=== PATIENT | female | born 1970 | race Caucasian/White ===

== ENCOUNTER 2018-12-28 05:21 | Emergency (ER) | payer OTHER ==
[~2018-12-28] VITALS: Ht 165.1 cm; Wt 74.8 kg
[~2018-12-28 05:21] MED LIST: DUEXIS 800-26.1 EACH; LOTREL
--- OUTSIDE RECORDS SUMMARY | 2018-12-28 05:25 | XMS REPORT | Encounter Summary ---
Author Organization Unknown Address [address] [place] [address] Phone [phone] Reason for Visit Medical Complaint Instructions 1. Exposure to Influenza A virus subtype H1N1 rapid flu (A+B) Tamiflu 75 mg capsule 2. Acute urinary tract infection urinalysis, dipstick Macrobid 100 mg capsule culture, urine Discussion Note: None recorded. Patient educational handouts: No information available. Plan of Care Patient Instructions Increase fluid intake. Take med as prescribed.If started to have yeast infection while on antibiotic, may call clinic for diflucan. Wipe front to back and urinate after sexual intercouse.Wear loose cotton underwear. May take cranberry juice for preventative. If symptoms worsen follow with severe back pain, chills, fever, abdominal pain call clinic. Reminders Provider Appointments None recorded. Lab Rapid Flu (A+B) 02/05/2016 [facility] Urinalysis, Dipstick 02/05/2016 [facility] Culture, Urine 02/05/2016 [facility] Referral None recorded. Procedures None recorded. Surgeries None recorded. Imaging None recorded. Medications Name Start Date hydrochlorothiazide 12.5 mg tablet ibuprofen 600 mg tablet losartan 50 mg tablet Macrobid 100 mg capsule Take 1 capsule(s) every 12 hours by oral route as directed for 7 days. Tamiflu 75 mg capsule Take 1 capsule(s) every day by oral route as directed for 10 days. tramadol 50 mg tablet Medications Administered None recorded. Vitals Height Weight BMI Blood Pressure 5 ft 5 in 175 lbs 29.1 118/80 Lab Results Date Name Result Description Value Range Status Rapid Flu (A+B) Influenza a negative Influenza B negative Urinalysis, Dipstick Color : Yellow Clarity : Cloudy Leukocytes : Moderate Nitrites : Positive Urobilinogen : Normal Protein : Negative Ph : 6.5 Blood : Small Specific Hodge : 1.020 Ketones : Negative Bilirubin : Negative Glucose Negative Allergies Name Reaction Severity Onset Aspirin Penicillins Problems Name Status Onset Date Source Sore Throat Symptom Active Encounter Acute Upper Respiratory Infection Active Encounter Urinary Tract Infectious Disease Active Encounter Acute Urinary Tract Infection Active Encounter Dysuria Active Encounter Procedures None recorded. Vaccine List None recorded. Social History Smoking Status Never Smoker Past Encounters 02/05/2016 Exposure to Influenza a Virus Subtype H1N1; Acute Urinary Tract Infection Ashley Muir, LAT[employer] DANCE INSTRUCTOR: [address] [place] [address], Ph. History of Present Illness [id number]-Aqk Reported By: Patient HPI: Quality: cannot identify. Duration: constant. Severity: subjective temperature. Onset/Timing: first recorded 2 days. Context: no tick/insect bites, no recent travel, no new medications, ill contacts. Associated Symptoms: no rash, no lethargy, cough, nasal discharge. Modifying Factors OTC medication Review of Systems Basic Reported By: Patient Constitutional: Constitutional: fever Eyes: Eyes: no eye complaints Pchb-Thsd-Roxho-Throat: Ears: no ear complaints. Nose: nose/sinus problems. Mouth/Throat: no sore throat, no bleeding gums, no mouth complaints, no teeth problems Cardiovascular: Cardiovascular: no chest pain, no shortness of breath, no known heart murmur Respiratory: Respiratory: no wheezing, no shortness of breath, cough Gastrointestinal: Gastrointestinal: no abdominal pain, no vomiting / diarrhea Genitourinary: Genitourinary: no urinary complaints, no discharge Musculoskeletal: Musculoskeletal: no muscle weakness, no arthralgias/joint pain, no back pain, muscle aches Skin: Skin: no abnormal / changing mole, no jaundice, no rashes Neurologic: Neurologic: no loss of consciousness, no weakness, no numbness, no seizures, no dizziness, no headaches Physical Exam Adult Female Complete, Adult Basic Constitutional: General Appearance: healthy-appearing, well-nourished, well-developed. Level of Distress: NAD. Ambulation: ambulating normally Psychiatric: Mental Status: active and alert. Orientation: to time, to place, to person Eyes: Lids and Conjunctivae: non-injected, no discharge, no pallor. Pupils: PERRLA. Corneas: grossly intact. EOM: EOMI. Lens: clear. Sclerae: non-icteric. Vision: acuity grossly intact Jql-Ywiv-Bncyt-Throat: Ears: no lesions on external ear, no outer ear tenderness, EACs clear, TMs clear. Hearing: no hearing loss. Nose: no lesions on external nose, nares patent, no septal deviation, nasal passages clear, no sinus tenderness, no nasal discharge. Lips, Teeth, and Gums: no mouth or lip ulcers, no bleeding gums, normal dentition. Oropharynx: moist mucous membranes, no erythema, no exudates, tonsils not enlarged Neck: Neck: supple, trachea midline, no masses, FROM. Lymph Nodes: no cervical LAD, no supraclavicular LAD. Thyroid: no enlargement, non-tender, no nodules Lungs: Respiratory effort: no dyspnea, no tachypnea, no use of accessory muscles, no intercostal retractions. Auscultation: breath sounds normal Cardiovascular: Heart Auscultation: RRR, no murmurs. Neck vessels: no carotid bruits Abdomen: Bowel Sounds: normal. Inspection and Palpation: soft, non-distended, no tenderness, no guarding, no rebound tenderness, no masses, no CVA tenderness. Liver: non-tender, no hepatomegaly. Spleen: non-tender, no splenomegaly. Hernia: none palpable
--- OUTSIDE RECORDS SUMMARY | 2018-12-28 05:25 | XMS REPORT | Encounter Summary ---
Author Organization Unknown Address [address] [place] [address] Phone [phone] Care Team Providers Care Lab Engineer Name Role Phone Ishan Tinoco 3 [phone] Reason for Visit Medical Complaint Instructions 1. Dysuria urinalysis, dipstick painful urination (dysuria): care instructions Macrobid 100 mg capsule phenazopyridine 200 mg tablet culture, urine 2. Acute upper respiratory infection rapid flu (A+B) upper respiratory infection (cold): care instructions fluticasone 50 mcg/actuation nasal spray,suspension benzonatate 200 mg capsule 3. Sore throat symptom rapid strep group A, throat sore throat: care instructions 4. Elevated blood pressure elevated blood pressure: care instructions dash diet: care instructions blood pressure monitoring education 5. Body mass index 25-29 - overweight learning about healthy weight Discussion Note: None recorded. Plan of Care Patient Instructions A urinary tract infection, or UTI, is a general term for an infection anywhere between the kidneys and the urethra (where urine comes out). Most UTIs are bladder infections. They often cause pain or burning when you urinate. UTIs are caused by bacteria and can be cured with antibiotics. Be sure to complete your treatment so that the infection goes away. How can you care for yourself at home? Take your antibiotics as directed. Do not stop taking them just because you feel better. You need to take the full course of antibiotics. Drink extra water and other fluids for the next day or two. This may help wash out the bacteria that are causing the infection. (If you have kidney, heart, or liver disease and have to limit fluids, talk with your doctor before you increase your fluid intake.) Avoid drinks that are carbonated or have caffeine. They can irritate the bladder. Urinate often. Try to empty your bladder each time. To relieve pain, take a hot bath or lay a heating pad set on low over your lower belly or genital area. Never go to sleep with a heating pad in place. To prevent UTIs Drink plenty of water each day. This helps you urinate often, which clears bacteria from your system. (If you have kidney, heart, or liver disease and have to limit fluids, talk with your doctor before you increase your fluid intake.) Urinate when you need to. Urinate right after you have sex. Change sanitary pads often. Avoid douches, bubble baths, feminine hygiene sprays, and other feminine hygiene products that have deodorants. After going to the bathroom, wipe from front to back. When should you call for help? Call your doctor now or seek immediate medical care if: Symptoms such as fever, chills, nausea, or vomiting get worse or appear for the first time. You have new pain in your back just below your rib cage. This is called flank pain. There is new blood or pus in your urine. You have any problems with your antibiotic medicine. Watch closely for changes in your health, and be sure to contact your doctor if: You are not getting better after taking an antibiotic for 2 days. Your symptoms go away but then come back. Reminders Provider Appointments None recorded. Lab Rapid Strep Group a, Throat 11/06/2018 [facility] Rapid Flu (A+B) 11/06/2018 [facility] Urinalysis, Dipstick 11/06/2018 [facility] Culture, Urine 11/06/2018 [facility] Referral None recorded. Procedures None recorded. Surgeries None recorded. Imaging None recorded. Medications Name Start Date benzonatate 200 mg capsule Take 1 capsule 3 times a day by oral route for 10 days. fluticasone 50 mcg/actuation nasal spray,suspension [place] 2 sprays every day by intranasal route as needed for 10 days. hydrochlorothiazide 12.5 mg tablet TAKE 1 TABLET BY MOUTH EVERY DAY NEEDED. __DUE FOR 6 MONTH FOLLOW UP. PLEASE SCHEDULE APPOINTMENT FOR OFFICE VISIT.__ losartan 50 mg tablet TAKE ONE TABLET BY MOUTH ONCE DAILY. __DUE FOR 6 MONTH FOLLOW UP. PLEASE SCHEDULE APPOINTMENT FOR OFFICE VISIT.__ Macrobid 100 mg capsule Take 1 capsule every 12 hours by oral route as directed for 7 days. phenazopyridine 200 mg tablet Take 1 tablet 3 times a day by oral route for 3 days. Medications Administered None recorded. Vitals Height Weight BMI Blood Pressure 5 ft 5 in 165 lbs 27.5 kg/m2 110/80 mm[Hg] Lab Results Date Name Specimen Result Interpretation Description Value Range Status Address 11/06/2018 Urinalysis, Dipstick Color : Zoe [facility]: [address] [place] [address] Clarity : Clear [facility]: [address] [place] [address] Leukocytes : Large [facility]: [address] [place] [address] Nitrites : Positive [facility]: [address] [place] [address] Urobilinogen : 1 [facility]: [address] [place] [address] Protein : Trace [facility]: [address] [place] [address] Ph : 5.0 [facility]: [address] [place] [address] Blood : Small [facility]: [address] [place] [address] Specific [place] : 1.015 [facility]: [address] [place] [address] Ketones : Trace [facility]: [address] [place] [address] Bilirubin : Large [facility]: [address] [place] [address] Glucose Negative [facility]: [address] [place] [address] Rapid Flu (A+B) Influenza a negative [facility]: [address] [place] [address] Influenza B negative [facility]: [address] [place] [address] Rapid Strep Group a, Throat Result negative [facility]: [address] [place] [address] Swab Location Left and Right tonsillar pillars [facility]: [address] [place] [address] Allergies Code Code System Name Reaction Severity Status Onset 1191 RxNorm Aspirin Active Penicillins Active Problems Name Status Onset Date Source Hypertensive Disorder Active 11/06/2018 Sore Throat Symptom Active Encounter Acute Upper Respiratory Infection Active Encounter Urinary Tract Infectious Disease Active Encounter Acute Urinary Tract Infection Active Encounter Dysuria Active Encounter Procedures None recorded. Vaccine List None recorded. Social History Smoking Status Never Smoker Past Encounters 11/06/2018 Dysuria; Acute Upper Respiratory Infection; Sore Throat Symptom; Elevated Blood Pressure; Body Mass Index 25-29 - Overweight GLADYS Justin-C: [address] [place] [address], Ph. History of Present Illness [id number]-PPI-Sahqbgk Reported By: Patient HPI: Location: urethra. Quality: pain, pressure, burning. Context: no known exposure to STD, no prior history of STDs, sexually active. Associated Symptoms: no fever/chills, no jaundice, no blood in the urine, no pain during urination, no vaginal discharge, no blisters on genitals, no rash on genitals, no headache, flank pain, burning sensation during urination, urgency, urinary frequency, feeling of incomplete emptying of bladder, muscle aches Qijpx-Uryoxorbif-Epzvopo Reported By: Patient HPI: Location: head/sinuses, throat, chest. Quality: productive cough, sore throat, nasal/sinus congestion. Duration: 4days. Severity: moderate. Onset/Timing: gradual. Context: no sick contacts, no foreign travel, non-smoker. Associated Symptoms: no sputum production, no shortness of breath, no wheezing, no change in number of pillows needed to sleep at night, no sweats, no significant weight gain, no significant weight loss, no vomiting, no diarrhea, no rash, no nausea, no fever, morning cough, sore throat, fever, muscle aches, headache Review of Systems:ROS as noted in the HPI Review of Systems Basic Reported By: Patient Physical Exam Adult Basic, Adult Female Complete Reported By: Patient Constitutional: General Appearance: healthy-appearing, well-nourished, well-developed, overweight. Level of Distress: NAD. Ambulation: ambulating normally Psychiatric: Mental Status: active and alert. Orientation: to time, to place, to person Qgu-Zsgx-Ocwdp-Throat: Ears: no lesions on external ear, no outer ear tenderness, EACs clear, TMs clear. Hearing: no hearing loss. Nose: no lesions on external nose, no septal deviation, nasal passages clear, no sinus tenderness, nares non- patent, nasal discharge--rhinorrhea, post nasal drip. Lips, Teeth, and Gums: no mouth or lip ulcers, no bleeding gums, normal dentition. Oropharynx: moist mucous membranes, no erythema, no exudates, tonsils not enlarged Lungs: Respiratory effort: no dyspnea, no tachypnea, no use of accessory muscles, no intercostal retractions. Auscultation: breath sounds normal Cardiovascular: Heart Auscultation: RRR, no murmurs Abdomen: Bowel Sounds: normal. Inspection and Palpation: soft, non-distended, no tenderness, no guarding, no rebound tenderness, no masses, no CVA tenderness
--- OUTSIDE RECORDS SUMMARY | 2018-12-28 05:25 | XMS REPORT | Continuity of Care Document ---
Author Author [facility] Interface Address Unknown Phone Unavailable Problems Problem Status Onset Date Classification Date Reported Comments Source Body mass index 25-29 - overweight 11/06/2018 Diagnosis 11/06/2018 [facility] Elevated blood pressure 11/06/2018 Diagnosis 11/06/2018 [facility] Sore throat symptom 11/06/2018 Diagnosis 11/06/2018 [facility] Acute upper respiratory infection 11/06/2018 Diagnosis 11/06/2018 [facility] Hypertensive Disorder 11/06/2018 Problem 11/06/2018 [facility] Acute left otitis media 07/01/2017 Diagnosis 07/01/2017 [facility] Rhinitis 07/01/2017 Diagnosis 07/01/2017 [facility] Exposure to Influenza A virus subtype H1N1 02/05/2016 Diagnosis 02/05/2016 [facility] Acute urinary tract infection 02/05/2016 Diagnosis 02/05/2016 [facility] V76.12 - SCREEN MAMMOGRA Active 01/26/2015 [facility] Sore Throat Symptom Problem 11/06/2018 [facility] Acute Upper Respiratory Infection Problem 11/06/2018 [facility] Urinary Tract Infectious Disease Problem 11/06/2018 [facility] Acute Urinary Tract Infection Problem 11/06/2018 [facility] Dysuria Problem 11/06/2018 [facility] Medications Medication Details Route Status Patient Instructions Ordering Provider Order Date Source Azithromycin 250 MG Oral Tablet azithromycin 250 mg tablet Take 2 tablets (500 mg) by oral route once daily for 1 day then 1 tablet (250 mg) by oral route once daily for 4 days Active [facility] Fluticasone propionate 0.05 MG/ACTUAT Metered Dose Nasal [place] fluticasone 50 mcg/actuation nasal spray,suspension [place] 2 sprays every day by intranasal route as needed for 10 days. Active [facility] Hydrochlorothiazide 12.5 MG Oral Tablet hydrochlorothiazide 12.5 mg tablet TAKE 1 TABLET BY MOUTH EVERY DAY NEEDED. __DUE FOR 6 MONTH FOLLOW UP. PLEASE SCHEDULE APPOINTMENT FOR OFFICE VISIT.__ Active [facility] Losartan Potassium 50 MG Oral Tablet losartan 50 mg tablet TAKE ONE TABLET BY MOUTH ONCE DAILY. __DUE FOR 6 MONTH FOLLOW UP. PLEASE SCHEDULE APPOINTMENT FOR OFFICE VISIT.__ Active [facility] Prednisone 20 MG Oral Tablet prednisone 20 mg tablet Take 1 tablet twice a day by oral route as directed for 6 days. Active [facility] benzonatate 200 MG Oral Capsule benzonatate 200 mg capsule Take 1 capsule 3 times a day by oral route for 10 days. Active [facility] NITROFURANTOIN, MACROCRYSTALS 25 MG / Nitrofurantoin, Monohydrate 75 MG Oral Capsule [Macrobid] Macrobid 100 mg capsule Take 1 capsule every 12 hours by oral route as directed for 7 days. Active [facility] Phenazopyridine hydrochloride 200 MG Oral Tablet phenazopyridine 200 mg tablet Take 1 tablet 3 times a day by oral route for 3 days. Active [facility] Ibuprofen 600 MG Oral Tablet ibuprofen 600 mg tablet Active [facility] Oseltamivir 75 MG Oral Capsule [Tamiflu] Tamiflu 75 mg capsule Take 1 capsule(s) every day by oral route as directed for 10 days. Active [facility] tramadol hydrochloride 50 MG Oral Tablet tramadol 50 mg tablet Active [facility] Allergies, Adverse Reactions, Alerts Substance Category Reaction Severity Reaction type Status Date Reported Comments Source Aspirin Allergy to substance 07/12/2010 [facility] Penicillins Allergy to substance 07/12/2010 [facility] Immunizations Immunization Date Given Site Status Last Updated Comments Source Results Order Name Results Value Reference Range Date Interpretation Comments Source Urinalysis macro (dipstick) panel - Urine COLOR : Zoe 11/06/2018 [facility] Urinalysis macro (dipstick) panel - Urine CLARITY : Clear 11/06/2018 [facility] Urinalysis macro (dipstick) panel - Urine LEUKOCYTES : Large 11/06/2018 [facility] Urinalysis macro (dipstick) panel - Urine NITRITES : Positive 11/06/2018 [facility] Urinalysis macro (dipstick) panel - Urine UROBILINOGEN : 1 11/06/2018 [facility] Urinalysis macro (dipstick) panel - Urine PROTEIN : Trace 11/06/2018 [facility] Urinalysis macro (dipstick) panel - Urine pH : 5.0 11/06/2018 [facility] Urinalysis macro (dipstick) panel - Urine BLOOD : Small 11/06/2018 [facility] Urinalysis macro (dipstick) panel - Urine SPECIFIC GRAVITY : 1.015 11/06/2018 [facility] Urinalysis macro (dipstick) panel - Urine KETONES : Trace 11/06/2018 [facility] Urinalysis macro (dipstick) panel - Urine BILIRUBIN : Large 11/06/2018 [facility] Urinalysis macro (dipstick) panel - Urine GLUCOSE Negative 11/06/2018 [facility] Influenza A negative 11/06/2018 [facility] Influenza B negative 11/06/2018 [facility] RESULT negative 11/06/2018 [facility] SWAB LOCATION Left and Right tonsillar pillars 11/06/2018 [facility] Urinalysis macro (dipstick) panel - Urine COLOR : Yellow 02/05/2016 [facility] Urinalysis macro (dipstick) panel - Urine CLARITY : Cloudy 02/05/2016 [facility] Urinalysis macro (dipstick) panel - Urine LEUKOCYTES : Moderate 02/05/2016 [facility] Urinalysis macro (dipstick) panel - Urine NITRITES : Positive 02/05/2016 [facility] Urinalysis macro (dipstick) panel - Urine UROBILINOGEN : Normal 02/05/2016 [facility] Urinalysis macro (dipstick) panel - Urine PROTEIN : Negative 02/05/2016 [facility] Urinalysis macro (dipstick) panel - Urine pH : 6.5 02/05/2016 [facility] Urinalysis macro (dipstick) panel - Urine BLOOD : Small 02/05/2016 [facility] Urinalysis macro (dipstick) panel - Urine SPECIFIC GRAVITY : 1.020 02/05/2016 [facility] Urinalysis macro (dipstick) panel - Urine KETONES : Negative 02/05/2016 [facility] Urinalysis macro (dipstick) panel - Urine BILIRUBIN : Negative 02/05/2016 [facility] Urinalysis macro (dipstick) panel - Urine GLUCOSE Negative 02/05/2016 [facility] Influenza A negative 02/05/2016 [facility] Influenza B negative 02/05/2016 [facility] Digital Mammo Screening Jae MA Digital Mammo Screening Jae MA - DIGITAL MAMMO SCREENING JAE MA BILATERAL DIGITAL SCREENING MAMMOGRAM WITH CAD: 02/13/2015 CLINICAL: Annual Screening. Current study was evaluated with a Computer Aided Detection (CAD) system. Comparison is made to exam dated: 08/19/2011 mammogram - [facility]. There are scattered fibroglandular densities in both breasts. Bilateral breast implants are intact. No significant masses, calcifications, or other findings are seen in either breast. There has been no significant interval change. IMPRESSION: NEGATIVE There is no mammographic evidence of malignancy. A 1 year screening mammogram is recommended. Dr. Asad Becker M.D. eoc/penrad:02/16/2015 15:38:21 Content Management Consultant: Gosia Ramírez RT(R)(M), [facility] This exam was dictated and interpreted by [id number] for LANI Sykes. letter sent: Normal exam Mammogram BI-RADS: 1 Negative 02/13/2015 - - Read by: Asad Becker MD Dictated Date/time: 02/16/15 15:38 Electronically Signed by: Asad Becker MD 02/16/15 15:38 FINAL REPORT [facility] Leos Vital Signs Vital Sign Value Date Comments Source Diastolic (mm Hg) 80 11/06/2018 [facility] Height 65 11/06/2018 [facility] Systolic (mm Hg) 110 11/06/2018 [facility] Weight 165 11/06/2018 [facility] Diastolic (mm Hg) 80 07/01/2017 [facility] Height 65 07/01/2017 [facility] Systolic (mm Hg) 132 07/01/2017 [facility] Weight 190 07/01/2017 [facility] Diastolic (mm Hg) 80 02/05/2016 [facility] Height 65 02/05/2016 [facility] Systolic (mm Hg) 118 02/05/2016 [facility] Weight 175 02/05/2016 [facility] Encounters Location Location Details Encounter Type Encounter Number Reason For Visit Attending Provider ADM Date DC Date Status Source [facility] Out[facility] - [facility] [id number] KHADIJAH SLAUGHTER 02/13/2015 02/14/2015 [facility] [place] - [facility] - [id number] Ashley Muir, CASE PREPARER AND LINER: [address] [facility], [place] [address], Ph. [id number] Ashley Muir 02/05/2016 [facility] [place] - [facility] - [id number] GLADYS Mata-C: [address] [place] [address], Ph. [id number] Romi Irby 07/01/2017 [facility] [place] - [facility] - [id number] GLADYS Justin-C: [address] [place] [address], Ph. [id number] Yudelka Montalvo 11/06/2018 [facility] Procedures Procedure Code Date Perfomer Comments Source
--- OUTSIDE RECORDS SUMMARY | 2018-12-28 05:25 | XMS REPORT | Summary of Care ---
Author Organization Unknown Address Unknown Phone Unavailable Encounter HQ Arnulfontr_analilia([facility]) [id number] Date(s): 02/13/15 - 02/13/15 [facility] Outpatient Imaging - [place] [address] [place], [place] [address] [phone] Discharge Disposition: Home Physician Attending: KHADIJAH SLAUGHTER Vital Signs No data available for this section Problem List No data available for this section Allergies, Adverse Reactions, Alerts No data available for this section Medications No data available for this section Results No data available for this section Immunizations No data available for this section Procedures No data available for this section Social History No data available for this section Assessment and Plan No data available for this section
--- OUTSIDE RECORDS SUMMARY | 2018-12-28 05:25 | XMS REPORT | Encounter Summary ---
Author Organization Unknown Address [address] [place] [id number] Phone [phone] Care Team Providers Care Order Filler Name Role Phone Ishan Tinoco 3 [phone] Reason for Visit Left Medical Complaint Instructions 1. Acute left otitis media azithromycin 250 mg tablet 2. Rhinitis prednisone 20 mg tablet fluticasone 50 mcg/actuation nasal spray,suspension Discussion Note Pt is in NAD; Verbalizes understanding of all instructions with no questions at this time. Patient educational handouts: No information available. Plan of Care Patient Instructions Take fluticasone as needed for nasal and ear congestion. [place] one spray in each nostril twice a day. Take a warm, steamy shower, blow your nose thereafter, and spray in each nostril. Tilt your head up for about 10 seconds and breath through your mouth. Do not sniff or snort the medication in or else the medication will go to your throat and not be absorbed appropriately. Take Claritin for allergy l jalen symptoms like runny nose, sneezing and watery eyes. Take steroid taper as directed and with food to avoid heartburn. if no improvement of ear symptoms in 2-3 days, start antibiotics. Take medications as prescribed and follow up with a PCP or ENT within 2-3 if symptoms worsen as discussed. Reminders Provider Appointments None recorded. Lab None recorded. Referral None recorded. Procedures None recorded. Surgeries None recorded. Imaging None recorded. Medications Name Start Date azithromycin 250 mg tablet Take 2 tablets (500 mg) by oral route once daily for 1 day then 1 tablet (250 mg) by oral route once daily for 4 days fluticasone 50 mcg/actuation nasal spray,suspension [place] 2 sprays every day by intranasal route as needed for 10 days. hydrochlorothiazide 12.5 mg tablet losartan 50 mg tablet TAKE ONE (1) TABLET(S) BY MOUTH ONCE A DAY DIRECTED. prednisone 20 mg tablet Take 1 tablet twice a day by oral route as directed for 6 days. Medications Administered None recorded. Vitals Height Weight BMI Blood Pressure 5 ft 5 in 190 lbs 31.6 kg/m2 132/80 mm[Hg] Lab Results None recorded. Allergies Code Code System Name Reaction Severity Status Onset 1191 RxNorm Aspirin Active Penicillins Active Problems Name Status Onset Date Source Sore Throat Symptom Active Encounter Acute Upper Respiratory Infection Active Encounter Urinary Tract Infectious Disease Active Encounter Acute Urinary Tract Infection Active Encounter Dysuria Active Encounter Procedures None recorded. Vaccine List None recorded. Social History Smoking Status Never Smoker Past Encounters 07/01/2017 Acute Left Otitis Media; Rhinitis Romi Irby, [facility]: [address] [facility], [place] [address], Ph. History of Present Illness [id number] Reported By: Patient HPI: Location: head/sinuses. Quality: nasal/sinus congestion. Duration: 3days. Severity: moderate. Onset/Timing: gradual. Context: no sick contacts, no foreign travel, non-smoker, allergies. Modifying factors: OTC medication. Associated Symptoms: no sputum production, no shortness of breath, no wheezing, no change in number of pillows needed to sleep at night, no sweats, no significant weight gain, no significant weight loss, no morning cough, no sore throat, no vomiting, no diarrhea, no rash, no nausea, no fever, no muscle aches, no headache; sinus pressure and left ear pain Ear Complaint Reported By: Patient HPI: Location: left. Quality: sharp, aching. Severity: continuous, moderate, current pain 7/10. Duration: constant; X 3 days. Onset/Timing: worse, abrupt onset. Context: no sick contacts, no recent swimming/water in ear, no exposure to second hand smoke, no head trauma, not grinding teeth, no recent air travel. Modifying factors: hurts to lie on, or pull on ear, hurts to chew, OTC medication. Associated Symptoms: no discharge from the ears, no popping noise in the ears, no ringing in the ears, no fever, no chills, no dizziness, no vertigo, no headache, no muscle aches, nose/sinus problems, earache; moderate left ear pressure and sinus pressure Review of Systems:ROS as noted in the HPI Review of Systems Basic Reported By: Patient Physical Exam Adult Basic, 14-21 Yr Male, Adult Female Complete Reported By: Patient Constitutional: General Appearance: healthy-appearing, well-nourished, well-developed. Level of Distress: NAD. Ambulation: ambulating normally Psychiatric: Mental Status: active and alert. Orientation: to time, to place, to person [id number]-Throat: Ears: no lesions on external ear, EACs clear, outer ear tenderness, TM erythematous, TM bulging. Nose: no lesions on external nose, nares patent, no septal deviation, nasal passages clear, no sinus tenderness, nasal discharge--rhinorrhea, post nasal drip; pink and edematous nasal turbinates bilaterally. Lips, Teeth, and Gums: no mouth or lip ulcers, no bleeding gums, normal dentition. Oropharynx: moist mucous membranes, no erythema, no exudates, tonsils not enlarged Neck: Neck: supple. Lymph Nodes: no cervical LAD Lungs: Respiratory effort: no dyspnea, no tachypnea, no use of accessory muscles, no intercostal retractions. Auscultation: breath sounds normal Cardiovascular: Heart Auscultation: RRR, no murmurs Neurologic: Gait and Station: normal gait, normal station
[2018-12-28 06:43] LABS: BASOPHILS % 0.4 % (0.0-1.0); EOSINOPHILS # (AUTO) 0.1 (0.0-0.4); HEMATOCRIT 38.2 % (34.2-44.1); HEMOGLOBIN 12.2 g/dL (12.0-16.0); LYMPHOCYTES # (AUTO) 0.7 (1.0-3.2); LYMPHOCYTES % 8.9 % (18.0-39.1); MEAN CORPUSCULAR HEMOGLOBIN 28.8 pg (28-32); MEAN CORPUSCULAR HGB CONC 31.9 g/dL (31-35); MEAN CORPUSCULAR VOLUME 90.1 fL (81-99); MONOCYTES # (AUTO) 0.3 (0.2-0.8); MONOCYTES % 4.5 % (4.4-11.3); NEUTROPHILS # (AUTO) 6.2 (2.1-6.9); NEUTROPHILS % 84.5 % (38.7-80.0); PLATELET COUNT 216 x10e3/uL (140-360); RED BLOOD COUNT 4.24 x10e6/uL (3.6-5.1); RED CELL DISTRIBUTION WIDTH 13.4 % (11.7-14.4)
--- NOTE | 2018-12-28 07:09 | Diagnostic Imaging Report ---
EXAMINATION: PA and lateral views of the chest. COMPARISON: None CLINICAL HISTORY: High fever, nausea DISCUSSION: Lines/tubes: None. Lungs: Lungs are well-inflated. Ill-defined airspace opacity located in the lingular/infrahilar location. Right lung is clear. Pleura: There is no pleural effusion or pneumothorax. Heart and mediastinum: Cardiomediastinal silhouette is unremarkable. Pulmonary vasculature is normal. Bones and soft tissues: No acute bony abnormalities. IMPRESSION: Left lingular/infrahilar ill-defined airspace opacity, likely representing pneumonia, in the appropriate clinical setting. Recommend chest PA and lateral 4-6 weeks after appropriate treatment to document resolution. Signed by: Dr. Pankaj Melendez M.D. on 12/28/2018 7:06 AM
[2018-12-28 07:10] LABS: ALANINE AMINOTRANSFERASE 17 IU/L (0-55); ALBUMIN/GLOBULIN RATIO 0.8 (0.8-2.0); ALKALINE PHOSPHATASE 71 IU/L (40-150); ANION GAP 8.9 mmol/L (8-16); BLOOD UREA NITROGEN 8 mg/dL (7-26); BUN/CREATININE RATIO 10 (6-25); CARBON DIOXIDE 27 mmol/L (22-29); CHLORIDE 104 mmol/L (98-107); CREATININE, SERUM 0.81 mg/dL (0.57-1.11); EST GLOMERULAR FILTRATION RATE > 60 ML/MIN (60-); GLUCOSE 110 mg/dL (74-118); POTASSIUM 3.9 mmol/L (3.5-5.1); SODIUM 136 mmol/L (136-145)
[2018-12-28] MEDS ORDERED: ACETAMINOPHEN 325 MG TAB PO ONE (09:30)
[2018-12-28] MEDS ORDERED: ACETAMINOPHEN 325 MG TAB ONE (09:35)
--- NOTE | 2018-12-28 09:35 | NUR ---
PATIENT PROVIDED WITH 975MG PO TYLENOL FOR FEVER; DR. GRIMES IN TRIAGE REVEIWING PLAN OF CARE WITH PATIENT FOR DISCHARGE;
[2018-12-28 09:42] VITALS: BP 150/88
[2018-12-28] MEDS ORDERED: ONDANSETRON HCL 4 MG ORAL DISINTEGRATING TAB PO ONE (09:45)
== END 2018-12-28 09:50 | disposition home or self-care (01) ==
LOC: ER 05:21
DX: R50.9 Fever, unspecified (principal); R11.2 Nausea with vomiting, unspecified; R05 Cough; R51 Headache; J15.9 Unspecified bacterial pneumonia; I10 Essential (primary) hypertension
CPT/HCPCS: 36415; 71046; 80053; 85025; 99283; Q0162

== ENCOUNTER 2022-01-11 15:11 | Observation (INO) | payer OTHER ==
[~2022-01-11] VITALS: Ht 165.1 cm; Wt 78.0 kg
[2022-01-11] MEDS ORDERED: ONDANSETRON HCL INJ 2MG/ML 2ML 2 MG/ML VIAL IV STA (15:28)
[2022-01-11] MEDS ORDERED: SODIUM CHLORIDE 0.9% 1000ML 1,000 ML IV SCH (15:30)
[2022-01-11] MEDS ORDERED: FENTANYL CITRATE/PF 100MCG/2 ML INJ IV PRN (15:30)
[2022-01-11 15:52] LABS: BASOPHILS # (AUTO) 0.1 (0.0-0.1); BASOPHILS % 0.7 % (0.0-1.0); EOSINOPHILS # (AUTO) 0.4 (0.0-0.4); EOSINOPHILS % 5.8 % (0.0-6.0); HEMATOCRIT 47.4 % (34.2-44.1); HEMOGLOBIN 15.6 g/dL (12.0-16.0); LYMPHOCYTES # (AUTO) 1.5 (1.0-3.2); LYMPHOCYTES % 21.3 % (18.0-39.1); MEAN CORPUSCULAR HEMOGLOBIN 30.7 pg (28-32); MEAN CORPUSCULAR HGB CONC 32.9 g/dL (31-35); MEAN CORPUSCULAR VOLUME 93.3 fL (81-99); MONOCYTES # (AUTO) 0.3 (0.2-0.8); NEUTROPHILS # (AUTO) 4.6 (2.1-6.9); NEUTROPHILS % 66.9 % (38.7-80.0); PLATELET COUNT 293 x10e3/uL (140-360); RED BLOOD COUNT 5.08 x10e6/uL (3.6-5.1); RED CELL DISTRIBUTION WIDTH 13.3 % (11.7-14.4)
[2022-01-11 15:55] LABS: CLARITY,URINE HAZY (CLEAR); COLOR,URINE AMBER (YELLOW); KETONES,URINE NEGATIVE (NEGATIVE); LEUKOCYTE ESTERASE ,URINE SMALL (NEGATIVE); NITRITE,URINE NEGATIVE (NEGATIVE); PROTEIN,URINE DIPSTICK 1+ (NEGATIVE); URINE UROBILINOGEN 0.2 mg/dL (0.2 - 1)
[2022-01-11 16:03] LABS: AMORPHOUS SEDIMENT,URINE MANY (FEW); BACTERIA,URINE MANY /HPF; EPITHELIAL CELLS,URINE MODERATE /LPF
[2022-01-11 16:10] LABS: ALBUMIN 3.7 g/dL (3.5-5.0); ALBUMIN/GLOBULIN RATIO 0.9 (0.8-2.0); ANION GAP 10.9 mmol/L (8-16); CALCIUM 9.2 mg/dL (8.4-10.2); CREATININE, SERUM 1.01 mg/dL (0.57-1.11)
[2022-01-11 16:11] LABS: POTASSIUM 2.9 mmol/L (3.5-5.1)
[2022-01-11] MEDS ORDERED: POTASSIUM CHLORIDE 20MEQ/100ML 100 ML IV ONE (16:15)
[2022-01-11] MEDS ORDERED: MAGNESIUM SULF 1GRAM/DEXTROSE 100 ML IV ONE (16:15)
[2022-01-11 16:18] LABS: LIPASE 13 U/L (8-78)
[2022-01-11] MEDS ORDERED: KETOROLAC TROMETHAMINE 30 MG/ML VIAL IV STA (18:09)
[2022-01-11] MEDS ORDERED: Morphine 4mg Syringe 4 MG/ML INJ IV ONE (18:45)
[2022-01-11] MEDS ORDERED: PIPERACILLIN/TAZOBACTAM 3.375 GM in SODIUM CHLORIDE 0.9% 50ML 50 ML IV SCH (18:45)
[2022-01-11] MEDS: SODIUM CHLORIDE 0.9% 1000ML 1,000 ML IV SCH (19:33)
[2022-01-11] MEDS: CEFEPIME 1 GM in SODIUM CHLORIDE 0.9% 50ML 50 ML IV SCH (19:33)
[2022-01-11 20:29] VITALS: BP 141/94
[2022-01-11] MEDS: METRONIDAZOLE 500MG/NS 100ML 100 ML IV SCH (20:51)
[2022-01-11 21:00] VITALS: BP 141/94
[2022-01-11 21:03] LABS: CREATINE KINASE MB 1.1 ng/mL (0-5.0)
[2022-01-11 21:24] VITALS: BP 141/94
[2022-01-11] MEDS ORDERED: PAROXETINE HCL20 MG PO (21:44)
[2022-01-11] MEDS ORDERED: HYDROCHLOROTHIA25 MG PO (21:45)
[2022-01-11] MEDS ORDERED: LOSARTAN POTAS100 MG PO (21:46)
[2022-01-11] MEDS: Morphine 4mg Syringe 4 MG/ML INJ IV PRN (23:36)
[2022-01-11] MEDS: ONDANSETRON HCL INJ 2MG/ML 2ML 2 MG/ML VIAL IV PRN (23:37)
[2022-01-12] VITALS (7 sets, daily range): BP systolic 114–156; BP diastolic 62–90
[2022-01-12] MEDS: METRONIDAZOLE 500MG/NS 100ML 100 ML IV SCH ×3 (02:39→17:47)
[2022-01-12] MEDS: SODIUM CHLORIDE 0.9% 1000ML 1,000 ML IV SCH ×3 (02:39→18:45)
[2022-01-12] MEDS: CEFEPIME 1 GM in SODIUM CHLORIDE 0.9% 50ML 50 ML IV SCH ×2 (03:47→12:44)
[2022-01-12] MEDS: ONDANSETRON HCL INJ 2MG/ML 2ML 2 MG/ML VIAL IV PRN ×2 (04:58→09:18)
[2022-01-12] MEDS: Morphine 4mg Syringe 4 MG/ML INJ IV PRN ×2 (04:58→09:18)
[2022-01-12 06:21] LABS: BASOPHILS % 0.8 % (0.0-1.0); EOSINOPHILS # (AUTO) 0.3 (0.0-0.4); HEMATOCRIT 40.4 % (34.2-44.1); HEMOGLOBIN 13.1 g/dL (12.0-16.0); LYMPHOCYTES # (AUTO) 1.5 (1.0-3.2); LYMPHOCYTES % 31.7 % (18.0-39.1); MEAN CORPUSCULAR HEMOGLOBIN 30.8 pg (28-32); MEAN CORPUSCULAR HGB CONC 32.4 g/dL (31-35); MEAN CORPUSCULAR VOLUME 94.8 fL (81-99); MONOCYTES # (AUTO) 0.3 (0.2-0.8); NEUTROPHILS # (AUTO) 2.5 (2.1-6.9); NEUTROPHILS % 53.1 % (38.7-80.0); PLATELET COUNT 234 x10e3/uL (140-360); RED BLOOD COUNT 4.26 x10e6/uL (3.6-5.1); RED CELL DISTRIBUTION WIDTH 13.6 % (11.7-14.4)
[2022-01-12 06:51] LABS: ANION GAP 9.1 mmol/L (8-16); CALCIUM 7.9 mg/dL (8.4-10.2); CREATININE, SERUM 0.83 mg/dL (0.57-1.11); POTASSIUM 3.1 mmol/L (3.5-5.1)
[2022-01-12 08:44] LABS: CREATINE KINASE MB 0.9 ng/mL (0-5.0)
[2022-01-12] MEDS ORDERED: POTASSIUM CHLORIDE 20MEQ/100ML 100 ML IV ONE ×4 (12:00→17:00)
[2022-01-12] MEDS ORDERED: LIDOCAINE HCL 2% LOCAL INJ 5 ML SDV VIAL INJ ONE (12:26)
[2022-01-12] MEDS ORDERED: DEXAMETHASONE SOD PHOS INJ 4 MG/ML SDV ONE (12:26)
[2022-01-12] MEDS ORDERED: PROPOFOL IV EMULSION 10 MG/ML 20 ML VIAL ONE (12:26)
[2022-01-12] MEDS ORDERED: NEOSTIGMINE 1 MG/ML 10ML VIAL ONE (12:26)
[2022-01-12] MEDS ORDERED: ONDANSETRON HCL INJ 2MG/ML 2ML 2 MG/ML VIAL ONE (12:26)
[2022-01-12] MEDS ORDERED: POVIDONE IODINE 0.05% 0.05 % ML PO ONE (12:26)
[2022-01-12] MEDS ORDERED: DESFLURANE 240 ML BTL INH ONE (12:26)
[2022-01-12] MEDS ORDERED: GLYCOPYRROLATE INJ 0.2 MG/ML VIAL ONE (12:26)
[2022-01-12] MEDS ORDERED: ROCURONIUM BROMIDE 10 MG/ML 5ML VIAL IV ONE (12:26)
[2022-01-12 12:31] LABS: CREATINE KINASE MB 0.9 ng/mL (0-5.0)
[2022-01-12] MEDS ORDERED: MIDAZOLAM HCL 2 MG/2 ML VIAL ONE (13:03)
[2022-01-12] MEDS ORDERED: FENTANYL CITRATE/PF 100MCG/2 ML INJ ONE (13:03)
[2022-01-12] MEDS ORDERED: BUPIVACAINE 0.25% 30ML SDV ONE (17:38)
[2022-01-12] MEDS ORDERED: HYDROMORPHONE 1MG/1ML INJ IV PRN (18:45)
[2022-01-12] MEDS ORDERED: HYDROCODONE/APAP 7.5MG-325MG 1 EA TAB PO PRN (18:45)
[2022-01-12] MEDS ORDERED: LEVOFLOXACIN 500MG/D5W 100ML 100 ML IV SCH (20:00)
[2022-01-12] MEDS: KETOROLAC TROMETHAMINE 30 MG/ML VIAL IV PRN (22:19)
[2022-01-13] MEDS: SODIUM CHLORIDE 0.9% 1000ML 1,000 ML IV SCH (03:11)
[2022-01-13 03:49] VITALS: BP 134/68
[2022-01-13] MEDS: KETOROLAC TROMETHAMINE 30 MG/ML VIAL IV PRN ×2 (05:29→08:51)
[2022-01-13 06:00] LABS: BASOPHILS % 0.4 % (0.0-1.0); HEMATOCRIT 40.8 % (34.2-44.1); HEMOGLOBIN 13.4 g/dL (12.0-16.0); LYMPHOCYTES # (AUTO) 0.7 (1.0-3.2); LYMPHOCYTES % 13.2 % (18.0-39.1); MEAN CORPUSCULAR HEMOGLOBIN 30.6 pg (28-32); MEAN CORPUSCULAR HGB CONC 32.8 g/dL (31-35); MEAN CORPUSCULAR VOLUME 93.2 fL (81-99); MONOCYTES # (AUTO) 0.2 (0.2-0.8); MONOCYTES % 2.9 % (4.4-11.3); NEUTROPHILS # (AUTO) 4.3 (2.1-6.9); NEUTROPHILS % 82.9 % (38.7-80.0); PLATELET COUNT 244 x10e3/uL (140-360); RED BLOOD COUNT 4.38 x10e6/uL (3.6-5.1); RED CELL DISTRIBUTION WIDTH 13.1 % (11.7-14.4)
[2022-01-13 06:36] LABS: ALBUMIN 3.1 g/dL (3.5-5.0); ALBUMIN/GLOBULIN RATIO 0.9 (0.8-2.0); ANION GAP 10.8 mmol/L (8-16); CALCIUM 8.2 mg/dL (8.4-10.2); CREATININE, SERUM 0.83 mg/dL (0.57-1.11); POTASSIUM 3.8 mmol/L (3.5-5.1)
[2022-01-13 08:00] VITALS: BP 134/68
[2022-01-13 08:07] VITALS: BP 136/85
[2022-01-13 11:51] VITALS: BP 137/78
[2022-01-13 15:51] VITALS: BP 142/80
== END 2022-01-13 19:12 | disposition home or self-care (01) ==
LOC: ER 15:30 → ERHOLD 19:07 → INTOOBSV 19:07 → MED/SURG3 19:49
DX: K80.12 Calculus of gallbladder with acute and chronic cholecystitis without obstruction (principal); I10 Essential (primary) hypertension; R00.1 Bradycardia, unspecified; R79.89 Other specified abnormal findings of blood chemistry; Z88.0 Allergy status to penicillin; Z88.8 Allergy status to other drugs, medicaments and biological substances; Z20.822 Contact with and (suspected) exposure to COVID-19
CPT/HCPCS: 36415 ×3; 47562; 76705; 80053 ×3; 81001; 82150; 82550 ×2; 82553 ×2; 83690 ×2; 84484 ×2; 85025 ×3; 88304; 93005; 93306; 94799; 99284; C1766; C9113; G0378 ×3; J0692 ×2; J1100; J1170; J1885 ×3; J1956; J2001; J2250; J2270 ×2; J2405 ×2; J2704; J2710; J3010 ×2; J3475; J3480 ×2; J7030 ×3; U0002